=== PATIENT | male | born 1970 | race Caucasian/White ===

== ENCOUNTER 2020-08-23 23:25 | Emergency (ER) | payer MEDICAID ==
[~2020-08-23] VITALS: Ht 175.3 cm; Wt 81.6 kg
[2020-08-23 23:31] VITALS: BP 142/83
--- NOTE | 2020-08-23 23:40 | NUR ---
PT [place] [place] [employer] FOR PREBOOK D/T HERION USE
[2020-08-23 23:45] VITALS: BP 142/83
--- NOTE | 2020-08-23 23:46 | NUR ---
PATIENT BIB [employer]. PATIENT EXAMINED BY DR. BARNES. PATIENT MEDICALLY CLEARED AND RELEASED IN CUSTODY IN STABLE CONDITION. ORIGINAL PRE-BOOK FORM GIVEN TO OFFICER AIDA.
== END 2020-08-23 23:45 ==
LOC: MED 23:25
DX: F11.90 Opioid use, unspecified, uncomplicated (principal); Z02.89 Encounter for other administrative examinations
CPT/HCPCS: 99283

== ENCOUNTER 2020-10-25 08:53 | Emergency (ER) | payer MEDICAID ==
[~2020-10-25] VITALS: Ht 167.6 cm; Wt 83.0 kg
[2020-10-25 08:56] VITALS: BP 114/80
--- NOTE | 2020-10-25 09:01 | NUR ---
PT AMBULATED TO BED 7, STEADY GAIT.
--- NOTE | 2020-10-25 09:04 | NUR ---
50 Y/M PRESENTS TO ED FOR L ELBOW PAIN SHARP 9/10 X 4 HOURS. DENIES INJURY. "FEELS LIKE FLUID IN THE ELBOW." SWELLING NOTED TO LARM. PMH- DENIES NKDA RX- DENIES
--- NOTE | 2020-10-25 09:20 | NUR ---
Dr Cortez at bedside examining pt
[2020-10-25] MEDS ORDERED: ACETAMINOPHEN 325 MG TAB PO ONE (09:25)
--- NOTE | 2020-10-25 09:32 | NUR ---
pt taken to xray via w/c
--- NOTE | 2020-10-25 09:42 | NUR ---
pt returned to bed 07
[2020-10-25 09:52] VITALS: BP 114/80
--- NOTE | 2020-10-25 09:52 | NUR ---
PATIENT ELOPED FROM FACILITY. DISCHARGE INSTRUCTIONS NOT GIVEN TO PATIENT. DR. WYATT NOTIFIED.
== END 2020-10-25 09:52 | disposition left against medical advice (07) ==
LOC: MED 08:53
DX: M25.522 Pain in left elbow (principal); F17.290 Nicotine dependence, other tobacco product, uncomplicated; M79.641 Pain in right hand; M25.512 Pain in left shoulder
CPT/HCPCS: 73080; 99283

== ENCOUNTER 2021-08-20 20:49 | Emergency (ER) | payer MEDICAID ==
[~2021-08-20] VITALS: Ht 167.6 cm; Wt 81.6 kg
[2021-08-20 20:53] VITALS: BP 149/89
[2021-08-20 21:00] VITALS: BP 149/89
--- NOTE | 2021-08-20 21:00 | NUR ---
Seen by ERMD no nursing interventions needed for patient.
--- NOTE | 2021-08-20 21:00 | NUR ---
Patient discharged with v/s stable. Written and verbal after care instructions given and explained. Patient verbalized understanding. With police in custody. All questions addressed prior to discharge. Advised to follow up with PMD.
== END 2021-08-20 21:00 ==
LOC: MED 20:49
DX: F11.10 Opioid abuse, uncomplicated (principal); Z02.89 Encounter for other administrative examinations
CPT/HCPCS: 99283